=== PATIENT | male | born 1985 | race African-American/Black ===

== ENCOUNTER 2024-06-08 10:55 | Emergency (ER) | payer OTHER ==
--- NOTE | 2024-06-08 13:32 | ER ---
Nurse's Notes [facility] Name: Felipe Dickerson Age: 38 yrs Sex: Male : 1985 Arrival Date: 06/08/2024 Time: 10:55 Bed IW1 [facility] MD: Diagnosis: Presentation: 06/08 11:19 Chief complaint: Patient states: right shoulder and right sided rib pain, reports sharp iw intermittent pain into the side of hi ribs, pain worsens when he moves a certain way or coughs , for a few months. Coronavirus screen: At this time, the client does not indicate any symptoms associated with coronavirus-19. Ebola Screen: No symptoms or risks identified at this time. Initial Sepsis Screen: Does the patient meet any 2 criteria? No. Patient's initial sepsis screen is negative. Does the patient have a suspected source of infection?. Risk Assessment: Do you want to hurt yourself or someone else? Patient reports no desire to harm self or others. 11:19 Method Of Arrival: Ambulatory iw 11:19 Acuity: LAEX 3 iw Assessment: 12:52 Reassessment: pt not in lobby when called. iw Vital Signs: 11:19 BP 120 / 82; Pulse 81; Resp 16; Temp 97.9; Pulse Ox 98% ; Weight 107.05 kg; Height 5 iw ft. 11 in. ; Pain 6/10; 11:19 Body Mass Index 32.91 (107.05 kg, 180.34 cm) iw 11:19 Pain Scale: Adult iw ED Course: 10:57 Patient arrived in ED. mr 10:59 Santhosh Hart PA is PHCP. cp 10:59 Santhosh Anderson MD is Attending Physician. cp 11:21 Triage completed. iw Administered Medications: No medications were administered Outcome: 13:32 Patient left the ED. iw Signatures: Val Carmona, Reg Reg Angela Cochran, RN RN iw Santhosh Hart PA PA cp
[2024-06-08 13:37] VITALS: BP 120/82; TEMP 97.9; O2SAT 98
--- NOTE | 2024-06-09 14:32 | EDPHYS ---
Physician Documentation [facility] Name: Felipe Dickerson Age: 38 yrs Sex: Male : 1985 Arrival Date: 06/08/2024 Time: 10:55 Bed IW1 Private MD: ED Physician Santhosh Anderson HPI: 06/08 11:25 This 38 yrs old Black Male presents to ER via Ambulatory with complaints of Right side cp pain. 11:25 The patient or guardian reports chest pain that is located primarily in the right side cp lateral chest. 11:25 The pain radiates to the right arm, the right scapula, right back. The chest pain is cp described as constant, persistent. Duration: The patient or guardian reports a single episode, that is still ongoing, and worsening. Patient denies injury and reports pain started 4-5 months ago. ROS: 11:30 Constitutional: Negative for body aches, chills, fever, poor PO intake, cp 11:30 Eyes: Negative for injury, pain, redness, and discharge, cp 11:30 Neck: Negative for injury or acute deformity, stiffness, 11:30 Cardiovascular: Positive for chest pain, of the right lateral chest wall, Negative for edema, palpitations, 11:30 Respiratory: Negative for cough, shortness of breath, wheezing, 11:30 Abdomen/GI: Negative for abdominal pain, vomiting, diarrhea, constipation, 11:30 Back: Positive for pain at rest, pain with movement, of the right scapular area and right subscapular area, 11:30 : Negative for urinary symptoms, 11:30 Neuro: Negative for altered mental status, dizziness, headache, weakness, 11:30 All other systems are negative, Exam: 11:33 Constitutional: The patient appears in no acute distress, alert, awake, non-toxic, well cp developed, well nourished, uncomfortable, 11:33 Head/Face: Normocephalic, atraumatic. cp 11:33 Neck: C-spine: vertebral tenderness, is not appreciated, crepitus, is not appreciated, ROM/movement: is normal, is supple, without pain, no range of motions limitations, 11:33 Chest/axilla: Inspection: normal, Palpation: crepitus, is not appreciated, tenderness, that is moderate, of the right lateral anterior chest and right lateral posterior chest, 11:33 Cardiovascular: Rate: normal, 11:33 Respiratory: the patient does not display signs of respiratory distress, Respirations: normal, no use of accessory muscles, no retractions, labored breathing, is not present, Breath sounds: are clear throughout, no decreased breath sounds, no stridor, no wheezing, 11:33 Abdomen/GI: Inspection: abdomen appears normal, Palpation: abdomen is soft and non-tender, in all quadrants, 11:33 Back: pain, that is moderate, of the right scapular area and right subscapular area, ROM is painful, with all movement, 11:33 Skin: cellulitis, is not appreciated, no rash present. 11:33 Neuro: Orientation: is normal, Motor: moves all fours, strength is normal, Sensation: is normal, Vital Signs: 11:19 BP 120 / 82; Pulse 81; Resp 16; Temp 97.9; Pulse Ox 98% ; Weight 107.05 kg; Height 5 iw ft. 11 in. ; Pain 6/10; 11:19 Body Mass Index 32.91 (107.05 kg, 180.34 cm) iw 11:19 Pain Scale: Adult iw MDM: 11:20 Medical Screening Exam initiated cp 13:30 Data reviewed: vital signs, nurses notes. cp Administered Medications: No medications were administered Disposition Summary: 06/08/24 13:32 Eloped Notes: Disposition: after being seen by provider iw Reason: unknown iw Signatures: Dispatcher [employer] Angela Palacios RN RN iw Santhosh Hart PA PA cp Corrections: (The following items were deleted from the chart) 11:29 11:29 Ribs Right+RAD.RAD.BRZ ordered. AVA ESCALANTE
== END 2024-06-08 13:32 | disposition left against medical advice (07) ==
LOC: ER 10:55
DX: R07.9 Chest pain, unspecified (principal); R00.2 Palpitations; M54.9 Dorsalgia, unspecified
CPT/HCPCS: 99281

== ENCOUNTER 2025-01-20 09:09 | Emergency (ER) | payer OTHER ==
--- OUTSIDE RECORDS SUMMARY | 2025-01-20 09:12 | XMS REPORT | Continuity of Care Document ---
Author Name Unknown Address [address] [place] [address] Organization [facility] [place] Address [address] [place] [address] Care Team Providers Care Communication Lecturer Name Role Phone Sarath Goldstein Primary Care Physician Vital Signs Vital Name Observation Time Observation Value Comments S ource Height Measured 2024-10-23 15:40:00 69.80 inches Wilmer Raciel Khoury Body Temperature 2024-10-23 15:40:00 98.60 degrees Wilmer Khoury Heart Rate 2024-10-23 15:40:00 76.00 /min Maria Del Carmen en Raciel Khoury Respiratory Rate 2024-10-23 15:40:00 17.00 /min Wilmer Khoury BP Systolic 2024-10-23 15:40:00 126 mm[Hg] Step hen Raciel Khoury BP Diastolic 2024-10-23 15:40:00 79 mm[Hg] Dimitrios Khoury Weight Measured 2024-10-23 15:40:00 229.80 pounds Wilmer Raciel Peng Encounters Start Date/Time End Date/Time Encounter Type Admission Type Attending [facility] Facility Care Department Encounter ID Source 2024-10-23 15:30:39 2024-10-23 15:30:39 Outpatient [facility] [id number] Wilmer Khoury 2024-10-23 00:00:00 2024-10-23 00:00:00 Outpatient Visit [facility] [id number] Wilmer Khoury Notes Date/Time Note Provider Source Wilmer Khoury [facility]
[2025-01-20 10:18] LABS: Influenza A Ag Negative; Influenza B Ag Negative; SARS-CoV-2 Antigen Rapid Res Negative (Negative)
--- NOTE | 2025-01-20 10:18 | RAD REPORT ---
EXAMINATION: ONE VIEW CHEST XR CLINICAL INDICATION: Cough;Fever TECHNIQUE: Frontal chest projection is submitted. Examination is limited by patient positioning and t echnique. COMPARISON: No prior exam. FINDINGS: The lungs are well inflated and clear. The heart is normal in size. No displaced fractures identified . IMPRESSION: No acute intrathoracic abnormalities.
--- NOTE | 2025-01-20 11:12 | EDPHYS ---
Physician Documentation [facility] Name: Felipe Dickerson Age: 39 yrs Sex: Male : 1985 Arrival Date: 01/20/2025 Time: 09:09 Bed DX5 Private MD: ED Physician Marco A Piedra HPI: 01/20 15:09 This 39 yrs old Black Male presents to ER via Ambulatory with complaints of Headache, dr5 Cough, Dizziness, bodyaches. 15:09 Patient is a 39-year-old male with no past medical history and 2 pack a day smoker dr5 coming in with cough, congestion, headache is been going on intermittently for the past 2 weeks. Patient reports intermittent productive cough with no fever.. Historical: - Allergies: :39 No Known Allergies; hb - Home Meds: :39 None [Active]; hb - PMHx: :39 None; hb - PSHx: 09:39 None; hb - Immunization history:: Adult Immunizations up to date. - Infectious Disease History:: Denies. - Social history:: Smoking status: Patient denies any tobacco usage or history of. ROS: 15:09 Constitutional: as per hpi dr5 Exam: 15:09 Constitutional: This is a well developed, well nourished patient who is awake, alert, dr5 and in no acute distress. Head/Face: Normocephalic, atraumatic. Eyes: Pupils equal round and reactive to light, extra-ocular motions intact. Lids and lashes normal. Conjunctiva and sclera are non-icteric and not injected. Cornea within normal limits. Periorbital areas with no swelling, redness, or edema. Neck: Trachea midline, no thyromegaly or masses palpated, and no cervical lymphadenopathy. Supple, full range of motion without nuchal rigidity, or vertebral point tenderness. No Meningismus. Chest/axilla: Normal chest wall appearance and motion. Nontender with no deformity. No lesions are appreciated. Cardiovascular: Regular rate and rhythm with a normal S1 and S2. Normal PMI, no JVD. No pulse deficits. Respiratory: Lungs have equal breath sounds bilaterally, clear to auscultation. No rales, rhonchi or wheezes noted. No increased work of breathing, no retractions or nasal flaring. Abdomen/GI: Soft, non-tender, non-distended Back: No spinal tenderness. No costovertebral tenderness. Full range of motion. Skin: Warm, dry with normal turgor. Normal color with no rashes, no lesions, and no evidence of cellulitis. MS/ Extremity: Pulses equal, no cyanosis. Neurovascular intact. Full, normal range of motion. Neuro: Awake and alert, GCS 15, oriented to person, place, time, and situation. Cranial nerves II-XII grossly intact. Motor strength 5/5 in all extremities. Sensory grossly intact. Cerebellar exam normal. Normal gait. Vital Signs: 09:38 BP 139 / 84; Pulse 78; Resp 18; Temp 97.9(O); Pulse Ox 96% on R/A; Weight 106.59 kg; hb Height 5 ft. 10 in. ; Pain 3/10; 09:38 Body Mass Index 33.72 (106.59 kg, 177.8 cm) hb 09:38 Pain Scale: Adult hb [place] Coma Score: 15:09 Eye Response: spontaneous(4). Motor Response: obeys commands(6). Verbal Response: dr5 oriented(5). Total: 15. MDM: 09:14 Medical Screening Exam initiated dr5 15:09 Differential diagnosis: Pneumonia, COVID, flu, strep, COPD. Data reviewed: vital signs, dr5 nurses notes, lab test result(s), Flu: negative COVID, strep negative, radiologic studies, plain films. Consideration of Admission/Observation Escalation of care including admission/observation considered. Escalation considered patient found to have pneumonia with fever and hypoxia. I considered the following discharge prescriptions or medication management in the emergency department I discussed and recommended Over The Counter medications, Medications were administered in the Emergency Department. See MAR. Independent interpretation of the following test(s) in the Emergency Department X-Ray: My interpretation is Independent interpretation of chest x-ray does not reveal infiltrates concerning for pneumonia. Historians other than the Patient: Spouse/Significant Other: Significant other. Care significantly affected by the following Social Determinants of Health: Poor access to healthcare and/or lack of insurance, Poor access to transportation, Problems related to employment. Counseling: I had a detailed discussion with the patient and/or guardian regarding the historical points, exam findings, and any diagnostic results supporting the discharge/admit diagnosis, the presence of at least one elevated blood pressure reading (>120/80) during this emergency department visit, lab results, radiology results, the need for outpatient follow up, for definitive care, a family practitioner, to return to the emergency department if symptoms worsen or persist or if there are any questions or concerns that arise at home, smoking cessation. Special discussion: I discussed with the patient/guardian in detail that at this point there is no indication for admission to the hospital. It is understood, however, that if the symptoms persist or worsen the patient needs to return immediately for re-evaluation. Based on the history and exam findings, there is no indication for further emergent testing or inpatient evaluation. I discussed with the patient/guardian the need to see the primary care provider for further evaluation of the symptoms. ED course: COVID, flu, strep negative. No pneumonia on x-ray but patient does have developed COPD. Likely from smoking 2 packs of cigarettes a day. Recommended patient stop smoking immediately. Recommend patient follow primary care doctor. Will cover with azithromycin and steroid Dosepak. All questions answered. Strict ER precautions given. 01/20 09:34 Order name: Group A Streptococcus Rapid; Complete Time: 10:11 dr5 01/20 09:34 Order name: COVID-19 Ag + Flu A+B Ag; Complete Time: 10:38 dr5 01/20 10:05 Order name: Throat Culture EDMS 01/20 09:34 Order name: Chest Single View XRAY; Complete Time: 10:38 dr5 Administered Medications: No medications were administered Disposition Summary: 01/20/25 11:11 Discharge Ordered Notes: Location: Home dr5 Condition: Stable dr5 Diagnosis - COPD/ Chronic obstructive pulmonary disease, unspecified dr5 - Cough dr5 Followup: dr5 - With: Emergency Department - When: As needed - Reason: Worsening of condition Followup: dr5 - With: Private Physician - When: 1 - 2 days - Reason: Recheck today's complaints, Continuance of care, Re-evaluation by your physician Discharge Instructions: - Discharge Summary Sheet dr5 - Chronic Obstructive Pulmonary Disease dr5 - Cough, Adult, [id number] dr5 Forms: - Work release form dr5 - Medication Reconciliation Form dr5 - Antibiotic Education dr5 - Patient Portal Instructions dr5 - Leadership Thank You Letter dr5 Prescriptions: - Zithromax Z-Gamaliel 250 mg Oral Tablet - take 1 tablet ORAL route as directed for 5 days Day 1 - take two (2) tablets dr5 one time. Day 2, 3, 4 , 5 take one (1) tablet once daily.; 6 tablet; Refills: 0, Product Selection Permitted - Medrol (Gamaliel) 4 mg Oral Tablets, Dose Pack - take 1 tablet ORAL route as directed - follow package instructions; 1 packet; dr5 Refills: 0, Product Selection Permitted Signatures: Dispatcher [employer] EDKelle Lange, RN RN sameer Hutton, Javier, JOURNEYMAN [employer]TER-C JOURNEYMAN MEAT CUTTER-Cdr5 Corrections: (The following items were deleted from the chart) : 09:34 Group A Streptococcus Rapid Sc+I.LAB.BRZ ordered. EDMS EDMS 34 09:34 COVID-19 Ag + Flu A+B Ag+I.LAB.BRZ ordered. EDMS EDMS :34 09:34 Chest Single View+RAD.RAD.BRZ ordered. EDMS EDMS
--- NOTE | 2025-01-20 11:12 | ER ---
Nurse's Notes [facility] Name: Felipe Dickerson Age: 39 yrs Sex: Male : 1985 Arrival Date: 01/20/2025 Time: 09:09 Bed DX5 Private MD: Diagnosis: COPD/ Chronic obstructive pulmonary disease, unspecified;Cough Presentation: 01/20 09:34 Chief complaint: Mold in house for months, wants mold testing. Reports headache, sinus hb congestion, and cough. Coronavirus screen: At this time, the client does not indicate any symptoms associated with coronavirus-19. Ebola Screen: No symptoms or risks identified at this time. Initial Sepsis Screen: Does the patient meet any 2 criteria? No. Patient's initial sepsis screen is negative. Does the patient have a suspected source of infection? No. Patient's initial sepsis screen is negative. Risk Assessment: Do you want to hurt yourself or someone else? Patient reports no desire to harm self or others. Onset of symptoms was October 2024. 09:34 Method Of Arrival: Ambulatory 09:34 Acuity: ALEX 4 hb Triage Assessment: 09:36 Headache History: Denies prior headaches. General: Appears in no apparent distress. hb Behavior is calm, cooperative. Neuro: GCS15. Cardiovascular: Patient's skin is warm and dry. Respiratory: Respiratory effort is even, unlabored, Respiratory pattern is regular, symmetrical. Historical: - Allergies: 09:39 No Known Allergies; hb - Home Meds: 09:39 None [Active]; hb - PMHx: 09:39 None; hb - PSHx: 09:39 None; hb - Immunization history:: Adult Immunizations up to date. - Infectious Disease History:: Denies. - Social history:: Smoking status: Patient denies any tobacco usage or history of. Vital Signs: 09:38 BP 139 / 84; Pulse 78; Resp 18; Temp 97.9(O); Pulse Ox 96% on R/A; Weight 106.59 kg; hb Height 5 ft. 10 in. ; Pain 3/10; 09:38 Body Mass Index 33.72 (106.59 kg, 177.8 cm) hb 09:38 Pain Scale: Adult hb [place] Coma Score: 15:09 Eye Response: spontaneous(4). Motor Response: obeys commands(6). Verbal Response: dr5 oriented(5). Total: 15. ED Course: 09:14 Patient arrived in ED. al6 09:14 Javier Hutton FNP-C is [facility]. dr5 09:14 Marco A Piedra MD is Attending Physician. dr5 09:35 Triage completed. hb 09:35 Arm band placed on. hb 09:39 COVID-19 Ag + Flu A+B Ag Sent. hb 09:39 Group A Streptococcus Rapid Sent. hb 10:14 Chest Single View XRAY In Process Unspecified. EDMS 10:47 Kelle Slater, RN is Primary Nurse. hb Administered Medications: No medications were administered Outcome: 11:11 Discharge ordered by . dr5 11:21 Patient left the ED. hb Signatures: Dispatcher [employer] EDMS Kelle Slater, RN RN Javier Curtis FNP-C GRINDER LAP-[id number] Allegra Keenan al6
[2025-01-20 14:05] VITALS: BP 139/84; TEMP 97.9; O2SAT 96
== END 2025-01-20 11:21 | disposition home or self-care (01) ==
LOC: ER 09:09
DX: J44.9 Chronic obstructive pulmonary disease, unspecified (principal); F17.210 Nicotine dependence, cigarettes, uncomplicated; Z11.52 Encounter for screening for COVID-19
CPT/HCPCS: 36415; 71045; 87070; 87428; 99282